=== PATIENT | male | born 1935 | race Caucasian/White ===

== ENCOUNTER 2016-06-23 06:09 | Inpatient (IN) | payer OTHER ==
[2016-06-16 14:24] LABS: BASOPHILS 0.3 %; BASOPHILS ABSOLUTE 0.02 10/3/uL (0.0-0.16); EOSINOPHILS 4.7 %; EOSINOPHILS ABSOLUTE 0.34 10/3/uL (0.0-0.53); HEMATOCRIT 38.2 % (40.0-51.0); HEMOGLOBIN 12.7 g/dL (13.6-17.8); IMMATURE GRANULOCYTES 0.3 %; IMMATURE GRANULOCYTES ABSOLUTE 0.02 10/3/uL (0.0-0.11); LYMPHOCYTES 15.6 %; LYMPHOCYTES ABSOLUTE 1.12 10/3/uL (0.67-4.30); MEAN CORPUS HGB CONC 33.2 g/dL (32.0-36.0); MEAN PLATELET VOLUME 9.5 fL (9.2-13.0); MONOCYTES 9.3 %; MONOCYTES ABSOLUTE 0.67 10/3/uL (0.21-1.20); NEUTROPHILS 69.8 %; PLATELET COUNT 185 10/3/uL (150-400); RED CELL COUNT 4.24 10/6/uL (4.7-6.1); WHITE BLOOD CELLS 7.2 10/3/uL (4.5-10.5)
[2016-06-16 14:25] LABS: MANUAL DIFF NO %; MEAN CORPUSCULAR VOLUME 90.1 fL (80-100)
[2016-06-16 14:42] LABS: A/G RATIO 1.4 (0.7-1.9); ALBUMIN 3.9 G/DL (3.5-5.0); ALKALINE PHOSPHATASE 125 U/L (45-117); BUN (BLOOD UREA NITROGEN) 17 MG/DL (6-23); CALCIUM, SERUM 9.7 MG/DL (8.5-10.4); CHLORIDE, SERUM 107 MMOL/L (96-112); CO2 (CARBON DIOXIDE) 25 MMOL/L (24-34); GFR AFRICAN AMERICAN 82 ML/MIN (>=60); GFR NON AFRICAN AMERICAN 71 ML/MIN (>=60); GLOBULIN 2.7 G/DL (2.5-4.1); GLUCOSE, SERUM 89 MG/DL (60-99); POTASSIUM, SERUM 3.9 MMOL/L (3.5-5.3); SGOT(AST) 10 U/L (5-40); SGPT(ALT) 13 U/L (5-65); SODIUM, SERUM 144 MMOL/L (135-148); TOTAL BILIRUBIN 0.5 MG/DL (0-1.2); TOTAL PROTEIN 6.6 G/DL (6.0-8.5)
--- NOTE | ~2016-06-23 | OP ---
Record Of Operation [facility] [address] [place]. [address] NAME: JANET MONTAÑO JR : 35 STATUS : ADM IN PAT#: [id number] AGE: 80 ADM/REG DATE : 06/23/16 MR#: [id number] REPORT SERV DATE: 06/23/16 DICTATED BY: ABBY GONZALES III DATE: 06/23/16 REPORT STATUS : Draft TRANSCRIBED BY: MODL DATE: 06/23/16 DATE OF PROCEDURE: 06/23/2016 PREOPERATIVE DIAGNOSIS: Symptomatic recurrent incisional hernia. POSTOPERATIVE DIAGNOSIS: Symptomatic recurrent incisional hernia, recurrent incisional hernia. PROCEDURE: Open repair of recurrent incisional hernia with lightweight Prolene mesh. SURGEON: Abby Gonzales M.D. ANESTHESIA: General with intubation. COMPLICATIONS: None. ESTIMATED BLOOD LOSS: Less than 5 mL. SPECIMENS: None. DRAINS: Lenin-Crawley in subcutaneous tissue. LAP AND SPONGE COUNT: Correct x3. BRIEF HISTORY: This 80-year-old male presented with a symptomatic recurrent periumbilical and supraumbilical incisional hernia. It was felt that repair of this hernia was indicated. This procedure, the risks, benefits, and alternatives, including but not limited to the risk for bleeding, infection, enterotomy, injury to any abdominal structure, postop small bowel obstruction, ileus, seroma formation, hematoma formation, recurrence of the hernia, infection of the mesh, or enterocutaneous fistula requiring removal of the mesh, and unforeseen complications including deep venous thrombosis, pulmonary embolus, myocardial infarction, stroke, pneumonia, and were fully explained to the patient prior to the surgery. The expected length of the recovery was explained. The patient's questions were answered. He understood the risks and agreed to the surgery as planned. DESCRIPTION OF PROCEDURE: After being properly identified, and after discussing the risks and benefits of the surgery with him again in the preoperative area, and after identifying the hernia with him in the preoperative area, the patient was taken to the operating room, and placed in supine position on the operating room table. General anesthesia was administered. He was intubated without difficulty. The abdomen was prepped and draped sterilely in the usual fashion. After an appropriate "time-out" per JCAHO standards, a small vertical incision was made directly over the hernia, in the midline, beginning several centimeters above the umbilicus and continued to just below the umbilicus. The incision was continued through the subcutaneous tissue. Hemostasis was controlled with the cautery. The incision was continued down to the fascial defect. The fascial defect was about 2 to 3 cm in size. Using sharp dissection, the skin and subcutaneous tissue around the defect Record Of Operation [facility] [address] [place]. [address] NAME: AJNET MONTAÑO JR : 35 STATUS : ADM IN PAT#: [id number] AGE: 80 ADM/REG DATE : 06/23/16 MR#: [id number] REPORT SERV DATE: 06/23/16 DICTATED BY: ABBY GONZALES III DATE: 06/23/16 REPORT STATUS : Draft TRANSCRIBED BY: HUDSON DATE: 06/23/16 anteriorly was fully mobilized. The underside of the fascia was inspected to be certain that there was no valve bowel beneath this. The fascial edges were clearly defined again both anteriorly and posteriorly. We then selected a Ventralight Prolene mesh. This was cut to the appropriate size for the defect. It was placed beneath the fascia to underlie the fascial edges by 2 to 3 cm. The mesh was then secured around the edges of the defect with short segments of interrupted #1 Prolene sutures. Hemostasis was assured. Upon completion of this, the mesh lay nicely under the defect. It was not twisted or kinked in any way. It was not under any tension. The area was irrigated copiously with saline. Hemostasis was assured. The Lenin-Crawley drain was brought through a separate stab wound and placed in the subcutaneous tissue. The subcutaneous tissue was closed with a running 3-0 chromic suture. The skin was closed with a running subcuticular 4-0 Monocryl stitch. The incision was injected with 0.5% Marcaine. Dressings were applied. Anesthesia was reversed. The patient was taken to the recovery room in stable condition. He tolerated the procedure well. His family was informed the results of the surgery. DIMA/HUDSON Kofi Mccarty III#: [id number] / [id number] CC: Kofi Mccarty III
--- NOTE | ~2016-06-23 | PREOPHP ---
PreOp History and Physical [address] [address] NAME: JANET MONTAÑO JR : 35 STATUS : PRE IN PAT#: [id number] AGE: 80 ADM/REG DATE : MR#: [id number] REPORT SERV DATE: 06/22/16 DICTATED BY: ABBY GONZALES III DATE: 05/26/16 REPORT STATUS : Draft TRANSCRIBED BY: MODL DATE: 05/26/16 HISTORY OF PRESENT ILLNESS: This 80-year-old male comes to the operating room for open repair of recurrent symptomatic incisional hernia. The patient has a recurrent symptomatic incisional hernia in the supraumbilical area. This hernia was previously repaired approximately two years ago. The hernia is associated with local pain and discomfort. The patient has had no nausea, vomiting, or obstructive symptoms. He comes now for open repair of this hernia. PAST MEDICAL HISTORY: 1. Hypertension. 2. Non-insulin dependent diabetes mellitus. 3. History of prostate cancer. PAST SURGICAL HISTORY: Includes robotic prostatectomy and incisional hernia repair x2. MEDICATIONS: Ambien, Percocet, Robaxin, folic acid, vitamins, omeprazole, niacin, aspirin, finasteride, lisinopril, glipizide, and antihistamines. ALLERGIES: NONE. SOCIAL HISTORY: The patient is retired. He is . He lives in [place], [place]. He has no history of tobacco or alcohol use. FAMILY HISTORY: Positive for cancer and diabetes. REVIEW OF SYSTEMS: The patient complains of reflux, indigestion, constipation, back pain, and urinary incontinence. PHYSICAL EXAMINATION: GENERAL: This is a male, in no acute distress. He is alert and oriented x3. VITAL SIGNS: Blood pressure 129/74, pulse 66, and temperature 97.7. HEENT: Unremarkable. Cranial nerves 2 through 12 are normal. LUNGS: Clear. CARDIAC: Normal. ABDOMEN: Soft, nontender. In the supraumbilical area just superior to a previous midline incision, there is an incisional hernia. The hernia is reducible. EXTREMITIES: Normal. ASSESSMENT: 1. 80-year-old male with symptomatic recurrent supraumbilical incisional hernia. 2. Hypertension. 3. Non-insulin dependent diabetes mellitus. 4. History of incisional hernia repair. 5. History of robotic prostatectomy. 6. History of prostate cancer. PreOp History and Physical [address] [place]. [address] NAME: JANET MONTAÑO JR : 35 STATUS : PRE IN PAT#: [id number] AGE: 80 ADM/REG DATE : MR#: [id number] REPORT SERV DATE: 06/22/16 DICTATED BY: ABBY GONZALES III DATE: 05/26/16 REPORT STATUS : Draft TRANSCRIBED BY: HUDSON DATE: 05/26/16 PLAN: The patient comes to the operating room now for repair of this hernia. This procedure, the risks, benefits, and alternatives, including but not limited to the risk for bleeding, infection, enterotomy, injury to any abdominal structure, postop small bowel obstruction, ileus, incisional hernia recurrence, seroma formation, hematoma formation, need for use of mesh, risk of infection of the mesh, or enterocutaneous fistula requiring removal of the mesh, and unforeseen complications including deep venous thrombosis, pulmonary embolus, myocardial infarction, stroke, pneumonia, and have been explained to the patient prior to the surgery. The fact that this is a major operation with risk for major morbidity and mortality has been explained. The expected length of recovery has been explained. The patient's questions have been answered. He clearly understands the risks and agrees to the surgery as planned. DIMA/HUDSON Abby Gonzales III, M.D. / [id number]
[~2016-06-23 06:09] MED LIST: AMB10 PO; ASAB PO; BUPAP1 TAB PO; DECONG OR; ENDOCET PO; FISH-EPA1000 MG PO; FOLIC ACID400 MC1; FOLIC PO; GLUCOTROL5 PO; GLUCXL2.5 PO; HALF81 PO; HCTZ25B PO; HYDROCHLOROTHIAZIDE PO; LISINOPRIL40 MG PO; LOPID6 PO; METAMUCIL CAN7 OZ PO; METHOC750B PO; NATURA2 OPH; NIACIN 500 PO; NIACIN PO; PCET PO; PEPCID40 MG PO; PERCOCET 10/3251 TAB PO; PRILO PO; PRIN2.5 PO; PRIN20 PO; PROSCAR5 PO; PT UNABLE TO RECALL; ROBAXIN PO; VITAMIN B-121000 MC1 SL; VITAMIN B12 PO; VITAMIN C PO; VITC500 PO; XALAT OPH
[2016-06-24 05:55] LABS: BASOPHILS 0.2 %; BASOPHILS ABSOLUTE 0.02 10/3/uL (0.0-0.16); EOSINOPHILS 1.7 %; EOSINOPHILS ABSOLUTE 0.16 10/3/uL (0.0-0.53); HEMATOCRIT 37.9 % (40.0-51.0); HEMOGLOBIN 12.5 g/dL (13.6-17.8); IMMATURE GRANULOCYTES 0.1 %; IMMATURE GRANULOCYTES ABSOLUTE 0.01 10/3/uL (0.0-0.11); LYMPHOCYTES ABSOLUTE 0.93 10/3/uL (0.67-4.30); MEAN CORPUSCULAR HEMOGLOB 30.1 pg (26.0-34.0); MEAN CORPUSCULAR VOLUME 91.3 fL (80-100); MEAN PLATELET VOLUME 9.8 fL (9.2-13.0); MONOCYTES 9.2 %; MONOCYTES ABSOLUTE 0.85 10/3/uL (0.21-1.20); NEUTROPHILS 78.8 %; NEUTROPHILS ABSOLUTE 7.29 10/3/uL (2.02-8.40); PLATELET COUNT 205 10/3/uL (150-400); RBC DISTRIBUTION WIDTH 13.2 % (12.0-16.0); RED CELL COUNT 4.15 10/6/uL (4.7-6.1); WHITE BLOOD CELLS 9.3 10/3/uL (4.5-10.5)
[2016-06-24 05:59] LABS: MANUAL DIFF NO %
[2016-06-24 06:05] LABS: BUN (BLOOD UREA NITROGEN) 14 MG/DL (6-23); CALCIUM, SERUM 9.9 MG/DL (8.5-10.4); CHLORIDE, SERUM 107 MMOL/L (96-112); CO2 (CARBON DIOXIDE) 24 MMOL/L (24-34); CREATININE 0.92 MG/DL (0.70-1.30); GFR AFRICAN AMERICAN 91 ML/MIN (>=60); GFR NON AFRICAN AMERICAN 78 ML/MIN (>=60); GLUCOSE, SERUM 96 MG/DL (60-99); POTASSIUM, SERUM 4.1 MMOL/L (3.5-5.3); SODIUM, SERUM 142 MMOL/L (135-148)
[2016-06-24] MEDS ORDERED: PERCOCET 7.5/321 TAB PO (09:27)
[2016-06-24] MEDS ORDERED: REFRESH OPH SO0.3 ML OPH (09:27)
== END 2016-06-24 10:46 | disposition home or self-care (01) | DRG 355 ==
LOC: SDC/OF 06:09 → PACU 09:21 → 5SO 16:37
PROVIDERS: Surgery
PROC: 0WUF0JZ Supplement Abdominal Wall with Synthetic Substitute, Open Approach (ICD-10-PCS; principal; 2016-06-23 08:00)
DX: K43.2 Incisional hernia without obstruction or gangrene (principal); E11.9 Type 2 diabetes mellitus without complications; R13.10 Dysphagia, unspecified; I10 Essential (primary) hypertension; Z85.46 Personal history of malignant neoplasm of prostate; Z90.49 Acquired absence of other specified parts of digestive tract; Z98.890 Other specified postprocedural states; Z79.82 Long term (current) use of aspirin; Z80.8 Family history of malignant neoplasm of other organs or systems; Z83.3 Family history of diabetes mellitus; H40.9 Unspecified glaucoma; E78.5 Hyperlipidemia, unspecified
CPT/HCPCS: 71020; 80048; 80053; 82962; 85025; 87641; 93005; A9270-GY; C1781; J0360; J0690; J1170; J2405; J2710; J3010